=== PATIENT | female | born 1965 | race American Indian/Alaskan Native ===

== ENCOUNTER 2017-02-12 10:10 | Outpatient (CLI) | payer BC ==
--- NOTE | 2017-02-12 14:20 | Mammography Report ---
Bilateral mammogram: Compared to 02/07/16 and 12/14/14. CAD study utilized. Findings: Heterogeneous breast parenchyma bilaterally. Circumscribed mass density left breast 2:00 position. Increase in size of the density is noted. In the previous study the density measured 2.2 cm in the present study measures 3.4 cm. No microcalcification. Benign axillary nodes. Impression: Increase in size of the density 12:00 position left breast compared to previous study. Recommend sonographic examination and if necessary spot compression magnification views. BI-RADS CATEGORY: 0 = Needs additional imaging evaluation ACR BI-RADS MAMMOGRAPHIC CODES: 0 = Needs additional imaging evaluation; 1 = Negative; 2 = Benign; 3 = Probably benign; 4 = Suspicious; 5 = Malignant; 6 = Known biopsy-proven malignancy COMMENT: 1. Dense breast tissue, i.e., adenosis, fibrocystic changes, etc., may obscure an underlying neoplasm. 2. Approximately 10% of cancers are not detected with mammography. 3. A negative mammography report should not delay biopsy if a clinically suspicious mass is present. COMMENT: Patient follow-up letters are generated in [employer].
== END 2017-02-12 10:11 | disposition home or self-care (01) ==
LOC: MAMMO 10:10
PROVIDERS: ATTEND Family Medicine
DX: Z12.31 Encounter for screening mammogram for malignant neoplasm of breast (principal)
CPT/HCPCS: 77067; G0202

== ENCOUNTER 2017-04-26 14:23 | Outpatient (CLI) | payer BC ==
--- NOTE | 2017-04-26 16:07 | Ultrasound Report ---
Left mammogram and left breast ultrasound: Additional compression imaging of the left breast is performed based on recent screening exam of February 12. 2 discrete masses are identified in the anterior breast on the cc compression. These are better defined than in the lateral compression image. Both appear well-circumscribed with the larger measuring 3.4 cm. Whole breast imaging demonstrates for echolucent masses in the 12, 2, and 3:00 positions. The largest of these is in the 12:00 position measuring 3.7 cm. These all demonstrate well-defined margins with echolucent centers. There is mild through transmission enhancement. No solid masses. Impressions: Left breast cysts. No suspicious findings. Recommendation: Annual mammogram followup. If these are symptomatic ultrasound-guided aspiration can be performed if desired. BI-RADS CATEGORY: 2 = Benign ACR BI-RADS MAMMOGRAPHIC CODES: 0 = Needs additional imaging evaluation; 1 = Negative; 2 = Benign; 3 = Probably benign; 4 = Suspicious; 5 = Malignant; 6 = Known biopsy-proven malignancy COMMENT: 1. Dense breast tissue, i.e., adenosis, fibrocystic changes, etc., may obscure an underlying neoplasm. 2. Approximately 10% of cancers are not detected with mammography. 3. A negative mammography report should not delay biopsy if a clinically suspicious mass is present.
== END 2017-04-26 14:24 | disposition home or self-care (01) ==
LOC: MAMMO 14:23
PROVIDERS: ATTEND Family Medicine
DX: N60.02 Solitary cyst of left breast (principal)
CPT/HCPCS: 76641; G0206

== ENCOUNTER 2018-04-09 10:21 | Emergency (ER) | payer OTHER, BC ==
[2018-04-09] MEDS ORDERED: TYLENOL PO ONE (10:32)
[2018-04-09] MEDS ORDERED: TYLENOL ONE (10:32)
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
[2018-04-09 12:16] VITALS: BP 136/80
== END 2018-04-09 12:16 | disposition home or self-care (01) ==
LOC: ED 10:21
DX: M54.2 Cervicalgia (principal); M19.90 Unspecified osteoarthritis, unspecified site; Z88.0 Allergy status to penicillin; V49.49XA Driver injured in collision with other motor vehicles in traffic accident, initial encounter; Y93.89 Activity, other specified; Y99.8 Other external cause status; Y92.488 Other paved roadways as the place of occurrence of the external cause
CPT/HCPCS: 72040

== ENCOUNTER 2018-05-11 10:54 | Outpatient (CLI) | payer BC ==
--- NOTE | 2018-05-11 11:55 | Mammography Report ---
Screening mammogram: Routine views are compared to her prior exam in January 2017. There is a heterogeneously dense breast pattern. There are 2 partially circumscribed masses in the retroareolar region of the upper breast and a much smaller nodule laterally. The remainder of the breast pattern bilaterally generally unremarkable. Compared to the prior examination these findings are not substantially different and were demonstrated as representing simple cysts on prior breast ultrasound. CAD used. Impression: Generally stable left breast cysts. Recommendation: Annual mammogram followup. BI-RADS CATEGORY: 2 = Benign ACR BI-RADS MAMMOGRAPHIC CODES: 0 = Needs additional imaging evaluation; 1 = Negative; 2 = Benign; 3 = Probably benign; 4 = Suspicious; 5 = Malignant; 6 = Known biopsy-proven malignancy COMMENT: 1. Dense breast tissue, i.e., adenosis, fibrocystic changes, etc., may obscure an underlying neoplasm. 2. Approximately 10% of cancers are not detected with mammography. 3. A negative mammography report should not delay biopsy if a clinically suspicious mass is present.
== END 2018-05-11 10:55 | disposition home or self-care (01) ==
LOC: MAMMO 10:54
PROVIDERS: ATTEND Family Medicine
DX: Z12.31 Encounter for screening mammogram for malignant neoplasm of breast (principal)
CPT/HCPCS: 77067

== ENCOUNTER 2019-05-19 13:09 | Outpatient (CLI) | payer BC ==
--- NOTE | 2019-05-22 10:16 | Mammography Report ---
BILATERAL DIGITAL SCREENING MAMMOGRAM WITH CAD INDICATION: Routine screening mammography. Previously confirmed cysts of the left breast. TECHNIQUE: Digital bilateral 2D mammography was obtained in the craniocaudal and mediolateral obliq ue projections. This examination was interpreted with the benefit of Computer-Aided Detection analysi s. COMPARISON: 05/11/2018 FINDINGS: Breast Density: The breasts are heterogeneously dense, which may obscure small masses. No mass, architectural distortion or suspicious calcifications. Left cysts are smaller than on previo us exams. IMPRESSION:No mammographic evidence of malignancy. BI-RADS Category 2: Benign. No mammographic evidence of malignancy. Recommend routine screening ma mmography in one year. A "normal" or negative report should not discourage follow up or biopsy of a clinically significant f inding. A written summary of these findings will be mailed to the patient. The patient will be entered into a mammography reporting system which will generate a reminder letter for the patient's next appointmen t at the appropriate interval. The [employer] recommends yearly mammograms starting at age 40 and continuing as l [place] as a woman is in good health. Breast MRI is recommended for women with an approximate 20-25% or greater lifetime risk of breast cancer, including women with a strong family history of breast or ova sammie cancer or who have been treated for Hodgkin's disease. Signer Name: Volodymyr Mack MD Signed: 05/22/2019 10:12 AM Workstation Name: [id number]
== END 2019-05-19 13:10 | disposition home or self-care (01) ==
LOC: MAMMO 13:09
PROVIDERS: ATTEND Family Medicine
DX: Z12.31 Encounter for screening mammogram for malignant neoplasm of breast (principal)
CPT/HCPCS: 77067

== ENCOUNTER 2021-08-28 14:56 | Outpatient (CLI) | payer BC ==
--- NOTE | 2021-08-29 15:13 | Mammography Report ---
DIGITAL SCREENING MAMMOGRAM WITH CAD, 08/28/2021 CLINICAL INFORMATION / INDICATION: Routine screening mammography. Z12.31 TECHNIQUE: Digital bilateral 2D mammography was obtained in the craniocaudal and mediolateral obliqu e projections. This examination was interpreted with the benefit of Computer-Aided Detection analysis . COMPARISON: 07/22/2020 FINDINGS: Breast Density: The breasts are heterogeneously dense, which may obscure small masses. No dominant mass, suspicious calcifications, or architectural distortion in either breast. There is a new spiculated mass measuring approximately 3 cm in the upper outer right breast, mid dept h, with associated calcifications. Some enlarged right axillary lymph nodes are also noted. Nodularity in the left breast appears similar to the previous exam. IMPRESSION: Highly suspicious right breast finding as outlined above. Recommend follow-up ultrasound. Follow up recommendation: Ultrasound BI-RADS Category 0: Incomplete. Needs additional imaging evaluation and/or prior mammograms for kanchan marks. A "normal" or negative report should not discourage follow up or biopsy of a clinically significant f inding. A written summary of these findings will be mailed to the patient. The patient will be entered into a mammography reporting system which will generate a reminder letter for the patient's next appointmen t at the appropriate interval. The [employer] recommends yearly mammograms starting at age 40 and continuing as l [place] as a woman is in good health. Breast MRI is recommended for women with an approximate 20-25% or greater lifetime risk of breast cancer, including women with a strong family history of breast or ova sammie cancer or who have been treated for Hodgkin's disease. Signer Name: Darvin Guzman MD Signed: 08/29/2021 3:08 PM Workstation Name: [id number]
== END 2021-08-28 14:57 | disposition home or self-care (01) ==
LOC: MAMMO 14:56
PROVIDERS: ATTEND Family Medicine
DX: Z12.31 Encounter for screening mammogram for malignant neoplasm of breast (principal); N63.11 Unspecified lump in the right breast, upper outer quadrant
CPT/HCPCS: 77067

== ENCOUNTER 2021-09-05 13:48 | Outpatient (CLI) | payer BC ==
--- NOTE | 2021-09-05 16:50 | Ultrasound Report ---
ULTRASOUND BREAST RIGHT LIMITED, 09/05/2021 CLINICAL INFORMATION / INDICATION: ABNORMAL MAMMOGRAM. TECHNIQUE: Targeted ultrasound evaluation was performed of the area of interest. COMPARISON: 08/28/2021 FINDINGS: Right breast ultrasound is markedly abnormal. There is a large solid irregular mass in the 10-11:00 l ocation, 2 cm from nipple measuring 4.8 x 2.6 x 2.8 cm, highly suggestive for breast carcinoma. This mass correlates with mammographic abnormality.. Additionally, there is a 1.3 x 0.7 cm solid irregular mass in the 10:00 position, 9 cm from nipple also very suggestive of malignant mass. Several abnorma l lymph nodes are seen in the right axilla with focal cortical thickening, highly suggestive for meta static adenopathy. IMPRESSION: Findings in the right breast are highly suggestive for breast carcinoma. There are 2 carissa gnant appearing masses in the upper outer quadrant of the right breast the largest of which has a max imum diameter 4.8 cm. Recommend ultrasound-guided biopsy. Additionally, there are several abnormal right axillary lymph nodes of concern for the presence of me tastatic axillary adenopathy. Surgical consultation is recommended. Follow up recommendation: Biopsy BI-RADS Category 5: Highly Suggestive of Malignancy. A normal or "negative" report should not preclude biopsy or follow-up of a clinically suspicious find ing. Signer Name: Amy Reyes MD Signed: 09/05/2021 4:45 PM Workstation Name: [id number]
== END 2021-09-05 13:49 | disposition home or self-care (01) ==
LOC: US 13:48
PROVIDERS: ATTEND Family Medicine
DX: N63.11 Unspecified lump in the right breast, upper outer quadrant (principal)